=== PATIENT | female | born 1940 | race Hispanic/Latino ===

== ENCOUNTER → 2023-07-15 | Outpatient (CLI) | payer OTHER | END | disposition home or self-care (01) | LOC: OIH 12:31 | PROVIDERS: ATTEND Family Medicine | DX: S23.41XA Sprain of ribs, initial encounter (principal); R07.82 Intercostal pain; M47.815 Spondylosis without myelopathy or radiculopathy, thoracolumbar region; X58.XXXA Exposure to other specified factors, initial encounter; Y93.89 Activity, other specified; Y92.89 Other specified places as the place of occurrence of the external cause; Y99.8 Other external cause status | CPT/HCPCS: 71046; 71100 ==

== ENCOUNTER 2025-08-22 07:20 | Observation (INO) | payer OTHER ==
[2025-08-17 10:36] VITALS: BP 133/67; PULSE 77; RESP 14; TEMP 97.3
--- NOTE | 2025-08-17 10:46 | EKG ---
[facility] Test Date: 2025-08-17 Test Time: 10:12:37 Pat Name: FAISAL REYES Department: [facility] Patient ID: [id number] Room: Gender: F Clinical Support Manager: [id number] : 1940 Requested By: ARIADNA ALEXIS Order Number: [id number] Reading MD: Monty Calle Measurements Intervals [place] Rate: 73 P: 56 [place]: 148 QRS: 34 QRSD: 91 T: 35 QT: 390 QTc: 431 Interpretive Statements Sinus rhythm No previous ECG available for comparison Electronically Signed On 08-17-2025 18:56:52 FITNESS DIRECTOR by Monty Calle Please click the below link to view image of tracing.
[2025-08-17 10:53] LABS: IMMATURE GRANULOCYTE ABSOLUTE 0.01 K/uL (0-1); NUCLEATED RED BLOOD CELLS 0.0 % (0.0-0.19); PLATELET COUNT (AUTO) 271 K/uL (130-400); RED BLOOD CELL COUNT(AUTO) 4.10 MIL/uL (4.00-5.50); RED CELL DISTRIBUTION WIDTH 12.5 % (11.0-15.5); WHITE BLOOD COUNT (AUTO) 6.6 K/uL (4.8-10.8)
[2025-08-17 11:09] LABS: APPEARANCE,URINE CLEAR (CLEAR); GLUCOSE, URINE (UA) NEGATIVE (NEGATIVE); LEUKOCYTE ESTERASE ,URINE NEGATIVE Leu/uL (NEGATIVE); NITRATE,URINE NEGATIVE (NEGATIVE); OCCULT BLOOD,URINE NEGATIVE (NEGATIVE)
[2025-08-17 11:10] LABS: ASPARTATE AMINOTRANSFERASE 16.0 U/L (10-37); CREATININE 0.7 mg/dL (0.5-1.0); GLOMERULAR FILTR. RATE CALC 86.0 mL/min (>90); GLUCOSE,RANDOM 98.0 mg/dL (70-105); SODIUM SERUM 135.0 mmol/L (136-145); TOTAL PROTEIN, SERUM 6.7 g/dL (6.0-8.3); UREA NITROGEN, BLOOD 16.0 mg/dL (7-18)
[2025-08-17 11:11] LABS: ADD UA MICROSCOPIC NO
[2025-08-17 11:37] LABS: INR 1.01 (0.85-1.15)
[2025-08-22] VITALS (27 sets, daily range): BP systolic 121–179; BP diastolic 57–86; PULSE 67–85; RESP 15–20; TEMP 97–98; O2SAT 99
[~2025-08-22] VITALS: Ht 157.5 cm; Wt 59.9 kg
[2025-08-22] MEDS: LACTATED RINGERS 1000ML 1,000 ML IV ONE (08:27)
[2025-08-22] MEDS: CLINDAMYCIN IVPB 600MG/50ML 50 ML IV ONE (08:51)
[2025-08-22] MEDS ORDERED: PROMETHAZINE HCL 25 MG/ML 1ML AMPULE IM PRN (09:30)
[2025-08-22] MEDS ORDERED: LIDOCAINE PF 100MG/5ML (2%) SYRINGE 5ML ONE (09:51)
[2025-08-22] MEDS ORDERED: GLYCOPYRROLATE 0.2 MG/ML 5 ML VIAL ONE ×2 (09:51→14:25)
[2025-08-22] MEDS ORDERED: SUCCINYLCHOLINE CHLORIDE 20 MG/ML 10 ML VIAL ONE (09:51)
[2025-08-22] MEDS ORDERED: MIDAZOLAM HCL 1 MG/ML 2ML VIAL ONE (09:53)
[2025-08-22] MEDS ORDERED: PROTamine SULFate 10 MG/ML 25ML VIAL IV ONE (10:18)
[2025-08-22] MEDS: FAMOTIDINE 20MG VIAL IV ONE (11:24)
[2025-08-22] MEDS: SUGAMMADEX SODIUM 200 MG/2 ML VIAL IV ONE (11:24)
--- NOTE | 2025-08-22 13:41 | OP ---
Operative Note: DATE OF PROCEDURE: 08/22/25 SURGEON: ARIADNA ALEXIS MD ADMINISTRATIVE ANALYST: [] PREOPERATIVE DIAGNOSIS: LEFT BREAST CANCER WITH A CONFIRMED POSITIVE LYMPH NODE ON FNA OF THE RIGHT AXILLA POSTOPERATIVE DIAGNOSIS: LEFT BREAST CANCER PROCEDURE: LEFT MODIFIED RADICAL MASTECTOMY WITH LEFT AXILLARY DISSECTION INDICATIONS: PATIENT WITH A LEFT BREAST CANCER LOCALLY ADVANCED NEEDING LOCAL REGIONAL CONTROL DESCRIPTION OF PROCEDURE:PATIENT IS BROUGHT TO THE OPERATING ROOM PLACED ON THE OPERATING TABLE IN A SUPINE POSITION ONCE GENERAL ENDOTRACHEAL ANESTHESIA IS ACHIEVED PATIENT'S LEFT ARM AND CHEST ARE PREPPED AND DRAPED IN STERILE FASHION. USING THE HAND-HELD DOPPLER IDENTIFIED THE MEDIAL PERFORATORS ARE MARKED ABOUT THE SKIN. I MARKED MY INFERIOR MAMMARY FOLD, THE STERNUM AND THE XIPHOID AND THE SUPERIOR BORDER OF THE BREAST UNDER THE CLAVICLE. WE THEN PROCEEDED TO DO ELLIPTICAL INCISION OVER TOP OF THE BREAST AND STARTED TO CREATE OUR SKIN FLAPS STARTED DEVELOPING MY SUPERIOR AND INFERIOR SKIN FLAPS. MEDIALLY WE WENT TO THE LEVEL OF THE STERNUM MAKING SURE TO PRESERVE THE MEDIAL PERFORATORS THAT I HAD MARKED. SUPERIORLY TO THE LEVEL OF THE CLAVICLE, INFERIOR TO THE INFRAMAMMARY FOLD AND LATERAL TO HER INSERTION OF THE SERRATUS MUSCLE. WE THEN PROCEEDED TO USE THE BOVIE CAUTERY TO REMOVE THE BREAST OF THE PECTORALIS MUSCLE OBTAIN HEMOSTASIS AND REMOVE THE SPECIMEN COMPLETELY. WE MARKED THE SPECIMEN WITH LONG WHITE MEDIAL, SHORT WHITE CEPHALAD, LONG GREEN AXILLARY CONTENTS, SHORT GREEN CAUDAL, SKIN SUPERFICIAL. WE OBTAIN HEMOSTASIS WITHIN OUR SURGICAL WOUND IRRIGATED WITH SALINE. WE THEN TURNED TO THE AXILLA WITH BLUNT DISSECTION IDENTIFIED THE AXILLARY VEIN AND DISSECTED THE FATTY PAD DISTAL TO THIS WITH THE HAND-HELD HARMONIC WE DID A LEVEL 2 GOING UNDER THE PECTORALIS MUSCLE AND A LEVEL 1 DISSECTION. WE HANDED OFF OF THE SPECIMEN AXILLARY DISSECTION AND THEN OBTAIN HEMOSTASIS. THERE WERE VERY LARGE INVOLVED LYMPH NODES THAT WERE INVOLVING THE NEUROVASCULAR BUND LE OF THE LONG THORACIC NERVE AND THIS HAD TO BE DIVIDED TO GET MAYBE A NEGATIVE MARGIN. AND THEN PROCEEDED TO PLACE OUR 10 NEW ZEALANDER DRAIN INTO THE LATERAL SKIN AND SECURED INTO THE SKIN WITH A NYLON SUTURE X2, LEAVING ONE DRAIN IN THE SUPERIOR SKIN FLAP AND ONE IN THE INFERIOR SKIN FLAP. I THEN PROCEEDED TO REMOVE ALL OF THE REDUNDANT SKIN. APPROXIMATED THE SKIN WITH INTERRUPTED HORIZONTAL MATTRESS 0 VICRYL WE THEN PROCEEDED TO CLOSE THE SKIN INCISIONS WITH 2 LAYER FASHION THE DEEP DERMAL WAS CLOSED WITH 3-0 VICRYL AND THE SKIN WAS CLOSED WITH 4-0 MONOCRYL RUNNING SUBCUTICULAR FASHION DERMABOND WAS APPLIED OVER TOP. 4 X 4'S FLUFFS AND KERLIX WERE APPLIED OVER TOP AND THEN SIRENA BANDAGE 6 INCH FOR COMPRESSION. PATIENT TOLERATED THE PROCEDURE WELL ALL COUNTS WERE CORRECT X2 AT THE END OF THE PROCEDURE. ESTIMATED BLOOD LOSS: 20CC DEVICES LEFT IN PLACE: 10 NEW ZEALANDER FLAT DRAIN X2 SPECIMENS REMOVED: LEFT BREAST AND LEFT AXILLARY CONTENTS ARIADNA ALEXIS MD Aug 22, 2025 13:40
[2025-08-22] MEDS ORDERED: NEOSTIGMINE METHYLSULFATE 1MG/ML IV ONE (14:25)
[2025-08-23] VITALS (7 sets, daily range): BP systolic 100–131; BP diastolic 43–65; PULSE 76–95; RESP 16–18; TEMP 97.9–98.2; O2SAT 97–98
[2025-08-23 05:53] LABS: IMMATURE GRANULOCYTE ABSOLUTE 0.04 K/uL (0-1); NUCLEATED RED BLOOD CELLS 0.0 % (0.0-0.19); PLATELET COUNT (AUTO) 238 K/uL (130-400); RED BLOOD CELL COUNT(AUTO) 3.91 MIL/uL (4.00-5.50); RED CELL DISTRIBUTION WIDTH 12.4 % (11.0-15.5); WHITE BLOOD COUNT (AUTO) 9.9 K/uL (4.8-10.8)
[2025-08-23 06:08] LABS: CREATININE 0.7 mg/dL (0.5-1.0); GLOMERULAR FILTR. RATE CALC 86.0 mL/min (>90); GLUCOSE,RANDOM 120.0 mg/dL (70-105); SODIUM SERUM 136.0 mmol/L (136-145); UREA NITROGEN, BLOOD 13.0 mg/dL (7-18)
--- NOTE | 2025-08-23 11:49 | NUR ---
DCP:HOME Pt currently lives alone after her . Pt denies any DME, home health, or provider service. Pt states that she is able to complete ADLs independently. PCP is Dr. Wilder Salazar and uses [facility] for any RX needs. At DC pt will want to go home and family can assist with transportation.
--- NOTE | 2025-08-23 14:54 | NUR ---
Discharge Update: Patient is s/p left mastectomy yesterday by Dr. Soria. Pending wound care orders. Pending surgeon to clear patient for discharge and give orders after assessing wound. DCP is for home with home health. MARZENA in place.
--- NOTE | 2025-08-23 16:27 | DS ---
Discharge Summary HOSPITAL COURSE SUMMARY: [ This is a 84-year-old female status post LEFT MODIFIED RADICAL MASTECTOMY WITH LEFT AXILLARY DISSECTION Interval history: This 74-year-old female seen in her room resting Patient's pain very well controlled Patient presented for elective left modified radical mastectomy with left axillary dissection and tolerating procedure well Incisions clean dry and well approximated with no signs of ischemia or infection MARC bulbs remain in place with serosanguineous output Chest binder in place with good tension Physical exam General: Awake alert and oriented Heart: Regular rate and rhythm} Lungs: Clear to auscultation no distress Abdomen: [Soft, nontender, nondistended Assessment : This is a 84-year-old female status post LEFT MODIFIED RADICAL MASTECTOMY WITH LEFT AXILLARY DISSECTION Plan: From surgical standpoint patient is now ready for discharge We will order home health for daily wound care and assistance with chest binder placement and drain care Patient follow up in 1-[address] Soria is office Continue with diet as tolerated Monitor for any infection Yang to be updated on patient's status Surgical case has been discussed with my supervising physician in the above plan was formulated and agreed upon We appreciate the hospitalist team for us to participate in patient's care. Greater than 45 minutes of time spent patient, reviewing chart, working on documentation] [employer] EQUIPMENT OPERATOR(S): [None] PROCEDURES: [Left mastectomy] PROBLEM(S): [] DISCHARGE INSTRUCTIONS: [] Avoid any heavy lifting Continue with drain care Await for home health scheduling for daily wound care Monitor for infection Doctor Soria to be updated in patient's status and nursing report any further acute events Home Meds Reported Medications Calcium Carbonate/Vitamin D3 (Calcium 600 mg-D3 20 Mcg Cplt) 600 Mg Calcium-20 Mcg (800 Unit) Tablet, 1 EACH PO HS, TAB 08/17/25 Ascorbic Acid (Vitamin C) 500 Mg Tablet, 500 MG PO HS, TAB 08/17/25 Atorvastatin Calcium (LIPITOR) 20 Mg Tab, 20 MG PO HS, TAB 25 Time spent arranging discharge: 1-30 minutes ROHITH DODGE Jr. PAC Aug 23, 2025 16:27
[2025-08-24] VITALS: BP 110/52; PULSE 69; RESP 17; TEMP 98
[2025-08-24 04:00] VITALS: BP 115/59; PULSE 78; RESP 19; TEMP 97.7
[2025-08-24 08:00] VITALS: BP 116/55; PULSE 73; RESP 18; TEMP 98.1
--- NOTE | 2025-08-24 09:01 | NUR ---
Discharge Update: Patient has been accepted by [facility]. Plan is for discharge home today.
[2025-08-24 10:45] VITALS: O2SAT 96
--- NOTE | 2025-08-24 11:47 | NUR ---
DISCHARGE PATIENT DISCHARGED HOME WITH FAMILY. [facility] WILL CONTINUE WOUND CARE AT HOME. PATIENT TO FOLLOW UP WITH MD IN TWO WEEKS.
== END 2025-08-24 11:45 | disposition home health service (06) ==
LOC: DAH 07:20 → DAHIP 07:21 → UNDOADMOB 07:21 → DAH 07:21 → EDSTATUS 12:00 → 3BH 15:50 → DAHIP 15:50 → 3BH 16:55
PROVIDERS: ADMIT Student in an Organized Health Care Education/Training Program; ATTEND Student in an Organized Health Care Education/Training Program
DX: C50.912 Malignant neoplasm of unspecified site of left female breast (principal); E78.00 Pure hypercholesterolemia, unspecified; E07.9 Disorder of thyroid, unspecified; Z79.899 Other long term (current) drug therapy; Z88.0 Allergy status to penicillin; Z86.2 Personal history of diseases of the blood and blood-forming organs and certain disorders involving the immune mechanism
CPT/HCPCS: 80053; 85025 ×2; 85610; 85730; 81003; 36415 ×2; 93005; 19307; 88309; 80048; A6260; G0378 ×43; A4223 ×2; A4600; A4663; J7030; J7120 ×2; J1308; J3010; J1100; J0330; J3490 ×5; J2003; J2250; J2704; J2405; J2710; J2795; A4215; A4213; A4222; A4221; A4216; J1644; J2720